=== PATIENT | female | born 1955 | race Caucasian/White ===

== ENCOUNTER → 2017-11-13 | Outpatient (CLI) | payer OTHER ==
[~2017-11-13] MED LIST: ASPIR 8181 MG PO; CLONAZEPAM 1 MG1 M1 PO; EFFIENT10 MG PO; IMDUR 30 MG TAB30 M1 PO; LEVOTHYROXINE PO; LIPITOR 20 MG T20 M1 PO; LISINOPRIL5 MG PO; LOPRESSOR25 PO; NITROGLYCERIN0.4 MG SUBLING
== END ==
LOC: M.ULTRA 13:18
DX: I82.90 Acute embolism and thrombosis of unspecified vein (principal); E78.00 Pure hypercholesterolemia, unspecified; E03.9 Hypothyroidism, unspecified; Z72.89 Other problems related to lifestyle

== ENCOUNTER → 2018-06-03 | Outpatient (CLI) | payer OTHER ==
--- NOTE | 2018-06-03 09:28 | 2DMMODE ---
[place] [address] 2 D/M-MODE ECHOCARDIOGRAM Name: HANS LAIRD Room: [facility]#: [id number] Admission: 06/03/18 Attend Phys: Rafy Barragan Discharge: Date of : 51 Date of Service: 06/03/18 0928 Report #: [id number] THIS REPORT FOR: //name// APPROVED REPORT Study performed: 06/03/2018 08:01:05 EXAM: Comprehensive 2D, Doppler, and color-flow Echocardiogram Patient Location: Out-Patient BSA: 1.62 HR: 72 bpm BP: 125/56 mmHg Other Information Study Quality: Good Indications CAD Hypertension/HDD 2D Dimensions IVSd: 13.37 (7-11mm) LVOT Diam: 20.54 (18-24mm) LVDd: 38.25 mm PWd: 9.98 (7-11mm) Ascending Ao: 26.10 (22-36mm) LVDs: 19.05 (25-40mm) Aortic Root: 24.71 mm Volumes Left Atrial Volume (Systole) LA ESV Index: 17.30 mL/m2 Aortic Valve AoV Peak Devyn.: 0.93 m/s AO Peak Gr.: 3.45 mmHg LVOT Max P.47 mmHg AO Mean Gr.: 2.05 mmHg LVOT Mean P.22 mmHg LVOT Max V: 0.79 m/s AO V2 VTI: 23.42 cm LVOT Mean V: 0.51 m/s ALFREDO (VTI): 2.82 cm2 LVOT V1 VTI: 19.97 cm Mitral Valve E/A Ratio: 0.82 MV Decel. Time: 252.78 ms MV E Max Devyn.: 0.58 m/s MV PHT: 73.31 [place] [address] 2 D/M-MODE ECHOCARDIOGRAM Name: HANS LAIRD Room: [facility]#: [id number] Admission: 06/03/18 Attend Phys: Rafy Barragan Discharge: Date of : 51 Date of Service: 06/03/18 0928 Report #: [id number] MVA (PHT): 3.00 cm2 TDI E/Lateral E': 7.25 E/Medial E': 5.80 Medial E' Devyn.: 0.10 m/s Lateral E' Devyn.: 0.08 m/s Pulmonary Valve PV Peak Devyn.: 0.68 m/s PV Peak Gr.: 1.86 mmHg Tricuspid Valve RAP Estimate: 5.00 mmHg TR Peak Gr.: 18.72 mmHg RVSP: 23.72 mmHg PA Pressure: 23.72 mmHg Left Ventricle The left ventricle is normal size. There is normal LV segmental wall motion. There is normal left ventricular wall thickness. Left ventricular systolic function is normal. The left ventricular ejection fraction is within the normal range. LVEF is 55-60%. Grade I - abnormal relaxation pattern. Right Ventricle The right ventricle is normal size. The right ventricular systolic function is normal. Atria The left atrium size is normal. The right atrium size is normal. Aortic Valve The aortic valve is normal in structure. No aortic regurgitation is present. There is no aortic valvular stenosis. Mitral Valve The mitral valve is normal in structure. Mild to moderate mitral regurgitation. No evidence of mitral valve stenosis. Tricuspid Valve The tricuspid valve is normal in structure. Trace tricuspid regurgitation. Pulmonic Valve The pulmonary valve is normal in structure. There is no pulmonic [place] [address] 2 D/M-MODE ECHOCARDIOGRAM Name: SISI,HANS JANIE Room: [facility]#: [id number] Admission: 06/03/18 Attend Phys: Rafy Barragan Discharge: Date of : 51 Date of Service: 06/03/18 0928 Report #: [id number] Great Vessels The aortic root is normal in size. IVC is normal in size and collapses >50% with inspiration. Pericardium There is no pericardial effusion. <Conclusion> LVEF is 55-60%. Mild to moderate mitral regurgitation. <ELECTRONICALLY SIGNED> By: Tonio Hernandez MD, [facility] 06/03/18927 7 7 Tonio Hernandez MD, [facility] /INF
== END ==
LOC: M.CRD 07:29
DX: I34.0 Nonrheumatic mitral (valve) insufficiency (principal)

== ENCOUNTER → 2018-06-28 | Outpatient (CLI) | payer OTHER ==
[~2018-06-28] VITALS: Ht 160 cm; Wt 61.2 kg
[~2018-06-28] MED LIST changes: +COZAAR 25 MG TA25 M2 PO
[2018-06-28 07:59] VITALS: BP 114/66
[2018-06-28 08:37] LABS: HEMATOCRIT 38.2 % (37.0-47.0); HEMOGLOBIN 12.8 gm/dL (12.0-15.0); MCH 29.6 pg (26.0-34.0); MCHC 33.5 g/dL (28.0-37.0); MCV 88.3 fL (80.0-100.0); MPV 8.8 fl. (7.2-11.1); RBC 4.32 mil/uL (4.20-5.00); RDW-CV 13.5 % (10.5-14.5); WBC 8.5 thou/uL (4.0-11.0)
[2018-06-28 08:45] LABS: ANION GAP 11 mmol/L (7-16); BUN 18 mg/dL (7-18); CALCIUM 8.8 mg/dL (8.5-10.1); CHLORIDE 104 mmol/L (98-107); CO2 27 mmol/L (21-32); CREATININE 0.8 mg/dL (0.6-1.3); GLUCOSE 109 mg/dL (70-99); POTASSIUM 3.3 mmol/L (3.5-5.1); SODIUM 142 mmol/L (136-145)
[2018-06-28 08:50] LABS: APTT 24.6 Seconds (25.0-31.3); CHOLESTEROL 190 mg/dL (<200); HDL CHOLESTEROL 47 mg/dL (>40); INR 0.9; LDL CHOLESTEROL 105 mg/dL (<100); PROTIME 9.6 Seconds (9.20-11.50); TRIGLYCERIDE 190 mg/dL (<150); VLDL 38 mg/dL (<40)
[2018-06-28 08:55] LABS: SERUM ASSESSMENT Clear
[2018-06-28 10:41] VITALS: BP 116/52
--- NOTE | 2018-06-28 10:52 | EKG ---
[place] [address] ELECTROCARDIOGRAM REPORT Name: HANS LAIRD Room: [place] [address] ADM IN M.R.#: [id number] Admission: 06/28/18 Attend Phys: Shayan Alegria MD, Discharge: Date of : 51 Report #: [id number] THIS REPORT FOR: //name// [facility] Test Date: 2018-06-28 Test Time: 08:48:58 Pat Name: HANS LAIRD Department: Room: [facility] Gender: F Towel Weaver: : 1955 Requested By: Shayan Alegria Order Number: [id number] Bryn MD: Shayan Alegria Measurements Intervals Divide Rate: 63 P: 21 MI: 179 QRS: 4 QRSD: 78 T: 67 QT: 443 QTc: 454 Interpretive Statements Sinus rhythm Baseline wander in lead(s) II,III,aVF Compared to ECG 10/30/2016 12:48:45 Myocardial infarct finding no longer present Electronically Signed On 06-28-2018 10:52:00 CDT by Shayan Alegria [email or web address] <ELECTRONICALLY SIGNED> By: Shayan Alegria MD, [facility] 06/28/18 1052 0848 0848 Shayan Alegria MD, [facility] /EPI
[2018-06-28 11:19] VITALS: BP 105/50
[2018-06-28 11:50] VITALS: BP 116/40
--- NOTE | 2018-06-28 13:00 | CARD ---
[address] [address] CARDIAC CATH REPORT Name: SISIHANS ZAMORA Room: [place] [address] ADM IN .R.#: [id number] Admission: 06/28/18 Attend Phys: Shayan Alegria MD, Discharge: Date of : 51 Report #: [id number] THIS REPORT FOR: //name// APPROVED REPORT Study performed: 06/28/2018 08:44:09 Patient Details Patient Status: Out-Patient Room #: Event Personnel Dr. Shayan Alegria Procedures Performed Left heart catheterization left ventriculography and selective coronary angiography and fractional flow reserve pertinent to the LAD Indication Chest pain Risk Factors Family History, Hypercholesterolemia Procedure Narrative The patient was brought electively to the Cardiac Catheterization Laboratory and was prepped and draped in a sterile manner. The right femoral was infiltrated with 2% Lidocaine subcutaneous anesthesia. A 6 Greek sheath was inserted into the right femoral artery. Coronary angiography was performed using coronary diagnostic catheters. The right coronary system was accessed and visualized with a Diagnostic catheter. The left coronary system was accessed and visualized with a Diagnostic catheter. The left ventricle was accessed and visualized with a Diagnostic catheter. Left ventricular/Aortic Valve gradient assessed via catheter pullback. Left ventriculogram was performed in SCHWARTZ projection. Pre-demployment femoral angiogram was performed . Closure device was deployed with a 6 Fr Mynx. There was no hematoma. Coronary Angiography The patient's coronary anatomy is right dominant. Diagnostic Cath Left Main Widely patent stent LAD 30% ostial narrowing with widely patent proximal LAD [address] [address] CARDIAC CATH REPORT Name: HANS LAIRD Room: [place] [address] ADM IN .R.#: [id number] Admission: 06/28/18 Attend Phys: Shayan Alegria MD, Discharge: Date of : 51 Report #: [id number] Circumflex 30% narrowing of the proximal portion of the first marginal branch Right Coronary 30% proximal mid and distal narrowings IVUS Anticoagulation was achieved with Heparin. Hemodynamics The aortic pressure is 120/70 mmHg with a mean of 82 mmHg. The left ventricular end diastolic pressure is 14 mmHg. There was no gradient across the aortic valve upon pullback. Conclusion #1 Coronary artery disease characterized by the following: A widely patent left main coronary artery stent B 30% ostial LAD narrowing with widely patent proximal LAD stent C prominent but nondominant circumflex with 30% narrowing of the first marginal branch D dominant right coronary artery with 30% proximal mid and distal narrowings #2 normal left ventricular systolic pressure estimated ejection fraction 60% #3 normal left-sided hemodynamic study #4 fractional flow reserve was calculated pertinent to the proximal LAD lesion with a minimum value of 0.88, suggesting lack of hemodynamic significance Recommendations Cardiac Risk Reduction Program Aggressive Medical Therapy Diagnostic Cath Approved by: Shayan Alegria MD Date/Time: 06/28/2018 12:51:23 <ELECTRONICALLY SIGNED> By: Shayan Alegria MD, [facility] 06/28/18 1259 1259 1259Shayan Alegria MD, FAC /INF
[2018-06-28 13:28] VITALS: BP 107/49
== END | disposition home or self-care (01) ==
LOC: M.CL 07:46 → M.TBA-CV 10:17 → M.CL 10:17
PROVIDERS: Internal Medicine
DX: I25.10 Atherosclerotic heart disease of native coronary artery without angina pectoris (principal); E78.00 Pure hypercholesterolemia, unspecified; E03.9 Hypothyroidism, unspecified; Z88.8 Allergy status to other drugs, medicaments and biological substances; Z79.82 Long term (current) use of aspirin; Z79.899 Other long term (current) drug therapy; Z98.890 Other specified postprocedural states

== ENCOUNTER → 2019-04-02 | Outpatient (CLI) | payer MEDICARE, OTHER ==
--- NOTE | 2019-04-02 12:48 | 2DMMODE ---
[place] [address] 2 D/M-MODE ECHOCARDIOGRAM Name: HANS LAIRD Room: [facility]#: [id number] Admission: 04/02/19 Attend Phys: Rafy Barragan Discharge: Date of : 51 Date of Service: 04/02/19 1246 Report #: [id number] THIS REPORT FOR: cc: Dahlia Barroso MD, Jayne Lora MD Holkins,Shayan Garza MD [facility] ~ APPROVED REPORT Study performed: 04/02/2019 07:56:18 EXAM: Comprehensive 2D, Doppler, and color-flow Echocardiogram Patient Location: Out-Patient BSA: 1.61 HR: 67 bpm BP: 125/60 mmHg Other Information Study Quality: Good Indications CAD Hypertension/HDD 2D Dimensions IVSd: 10.00 (7-11mm) LVOT Diam: 19.64 (18-24mm) LVDd: 40.72 mm PWd: 10.06 (7-11mm) Ascending Ao: 25.60 (22-36mm) LVDs: 25.46 (25-40mm) Aortic Root: 24.72 mm Volumes Left Atrial Volume (Systole) LA ESV Index: 17.10 mL/m2 Aortic Valve AoV Peak Devyn.: 0.93 m/s AO Peak Gr.: 3.45 mmHg LVOT Max P.22 mmHg AO Mean Gr.: 2.16 mmHg LVOT Mean P.74 mmHg LVOT Max V: 0.90 m/s AO V2 VTI: 22.29 cm LVOT Mean V: 0.61 m/s ALFREDO (VTI): 3.12 cm2 LVOT V1 VTI: 22.93 [place] [address] 2 D/M-MODE ECHOCARDIOGRAM Name: HANS LAIRD Room: [facility]#: [id number] Admission: 04/02/19 Attend Phys: Rafy Barragan Discharge: Date of : 51 Date of Service: 04/02/19 1246 Report #: [id number] E/A Ratio: 0.97 MV Decel. Time: 213.41 ms MV E Max Devyn.: 0.75 m/s MV PHT: 61.89 ms MVA (PHT): 3.55 cm2 TDI E/Lateral E': 7.50 E/Medial E': 10.71 Medial E' Devyn.: 0.07 m/s Lateral E' Devyn.: 0.10 m/s Pulmonary Valve PV Peak Devyn.: 0.68 m/s PV Peak Gr.: 1.87 mmHg Tricuspid Valve RAP Estimate: 5.00 mmHg TR Peak Gr.: 16.97 mmHg RVSP: 21.97 mmHg PA Pressure: 21.97 mmHg Left Ventricle The left ventricle is normal size. There is apical hypokinesis noted. There is normal left ventricular wall thickness. Left ventricular systolic function is normal. The left ventricular ejection fraction is within the normal range. LVEF is 55-60%. Grade I - abnormal relaxation pattern. Right Ventricle The right ventricle is normal size. The right ventricular systolic function is normal. Atria The left atrium size is normal. The right atrium size is normal. Aortic Valve The aortic valve is normal in structure. No aortic regurgitation is present. There is no aortic valvular stenosis. Mitral Valve The mitral valve is normal in structure. Mild mitral regurgitation. No evidence of mitral valve stenosis. Tricuspid Valve The tricuspid valve is normal in structure. Mild [place] [address] 2 D/M-MODE ECHOCARDIOGRAM Name: HANS LAIRD Room: [facility]#: [id number] Admission: 04/02/19 Attend Phys: Rafy Barragan Discharge: Date of : 51 Date of Service: 04/02/19 1246 Report #: [id number] Pulmonic Valve The pulmonary valve is normal in structure. There is no pulmonic valvular regurgitation. Great Vessels The aortic root is normal in size. IVC is normal in size and collapses >50% with inspiration. Pericardium There is no pericardial effusion. <Conclusion> The left ventricle is normal size. There is normal left ventricular wall thickness. Left ventricular systolic function is normal. The left ventricular ejection fraction is within the normal range. LVEF is 55-60%. Grade I - abnormal relaxation pattern. The right ventricle is normal size. The left atrium size is normal. The aortic valve is normal in structure. The mitral valve is normal in structure. Mild mitral regurgitation. The tricuspid valve is normal in structure. Mild tricuspid regurgitation. IVC is normal in size and collapses >50% with inspiration. There is no pericardial effusion. There is apical hypokinesis noted. <ELECTRONICALLY SIGNED> By: Shayan Alegria MD, FACC 04/02/19 1246 1246 1246 Shayan Alegria MD, FACC /INF
== END ==
LOC: M.CRD 07:56
DX: I08.1 Rheumatic disorders of both mitral and tricuspid valves (principal); I25.10 Atherosclerotic heart disease of native coronary artery without angina pectoris; I10 Essential (primary) hypertension

== ENCOUNTER → 2019-11-27 | Outpatient (CLI) | payer MEDICARE, OTHER ==
--- NOTE | 2019-11-27 18:07 | CARDNUC ---
[place] [address] CARDIAC NUCLEAR IMAGING REPORT Name: HANS LAIRD Room: [facility]#: [id number] Admission: 11/27/19 Attend Phys: Rafy Barragan Discharge: Date of : 51 Date of Service: 11/27/19 1806 Report #: [id number] THIS REPORT FOR: cc: Dahlia Barroso MD, Jayne Lora MD [place], Michael J. MD [facility] ~ APPROVED REPORT Imaging Protocol: Rest Tc-99m/Stress Tc-99m 1 day Study performed: 11/27/2019 09:51:22 Indication: CAD s/p ID, CAD s/p PCI, Cardiomyopathy Patient Location: Out-Patient Stress Tech: Jayne Zamorano Stress Nurse: Loyda Heaton RN NM Tech:MILAGROS Montesinos Ht: 5 ft 2 in Wt: 138 lbs BSA: 1.63 m2 BMI: 25.23 Medical History Medical History: CAD s/p ID, CAD s/p stent, HTN, Hyperlipidemia Medications: asa-81, atorvastatin,candesartan, metoprolol, nte, effient Allergies: prednisolone Cardiac Risk Factors: Age, FHX of CAD, HTN, Hyperlipidemia Previous Cardiac Procedures: PCI, Myocardial infarction Exercise History: Physically active Resting Data Rest SPECT myocardial perfusion imaging was performed in supine position 30 minutes following the intravenous injection of 10.3 mCi of Tc-99m Sestamibi. Time of rest injection: 0750 Date: 11/27/2019 The images were gated to evaluate regional wall motion and calculate left ventricular ejection fraction. Administration Route: IV Administration Site: Right AC Pharmacologic Stress Pharmacologic stress test was performed by injecting Regadenoson 0.4 mg IV push over 10-15 seconds immediately followed by the intravenous injection of 33.8 mCi of Tc-99m [place] [address] CARDIAC NUCLEAR IMAGING REPORT Name: HANS LAIRD Room: [facility]#: [id number] Admission: 11/27/19 Attend Phys: Rafy Barragan Discharge: Date of : 51 Date of Service: 11/27/19 1806 Report #: [id number] Time of stress injection: 0950 Date: 11/27/2019 Administration Route: IV Administration Site: Right AC Gated Stress SPECT was performed 40 minutes after stress injection. The images were gated to evaluate regional wall motion and calculate left ventricular ejection fraction. Prone imaging was performed. Stress Test Details Stress Test: Pharmacologic stress testing performed using 0.4 mg of regadenoson per 5 mL given IV over 10 seconds. Reason for pharmacologic stress test: physical limitation. HR Max Heart Rate (APMHR): 154 bpm Resting HR: 86 bpm Target HR (85% APMHR): 130 bpm Max HR Achieved: 104 bpm % of APMHR: 67 Recovery HR: 101 bpm BP Resting BP: 152/81 mmHg Max BP: 163/64 mmHg Recovery BP: 159/67 mmHg ECG Resting ECG: Sinus Rhythm Stress ECG: Sinus Tachycardia ST Change: None Arrhythmia: None Recovery ECG: Sinus Rhythm Recovery ST Change: None Recovery Arrhythmia: None Clinical Reason for Termination: Completed protocol The patient tolerated Lexiscan infusion without significant cardiac symptoms. Nurse Comments pt has leg pain today Stress ECG Conclusion The baseline twelve-lead EKG shows sinus rhythm without significant ST segment or T wave abnormality. EKGs obtained during and post Lexiscan infusion show sinus rhythm and sinus tachycardia with no significant ST segment or T [place] [address] CARDIAC NUCLEAR IMAGING REPORT Name: SISIHANSMABEL LIMA Room: [facility]#: [id number] Admission: 11/27/19 Attend Phys: Rafy Barragan Discharge: Date of : 51 Date of Service: 11/27/19 1806 Report #: [id number] baseline. There were no significant stress-induced arrhythmias. Study Quality Study: Good Artifact: No artifact Study Data At rest, the left ventricular ejection fraction was 76%.. Post stress, the left ventricular ejection was 84%.. TID = 0.77. Perfusion There is a moderate size moderate to severe intensity fixed defect involving the mid to distal anterior wall. The apex is spared. Significant reversibility is not appreciated. Wall Motion Global LV systolic function is well-preserved. There is perhaps a focal area of hypokinesis in the mid anterior wall. Nuclear Conclusion ECG Findings: negative for ischemia Clinical Findings: negative for ischemia Nuclear Findings: negative for ischemia Exercise Capacity: not assessed Left Ventricular Function: Preserved Perfusion study suggest infarct of the mid to distal anterior wall sparing the apex. Ischemia is not appreciated. Global LV systolic function is preserved. This is not a high risk study. <Conclusion> The baseline twelve-lead EKG shows sinus rhythm without significant ST segment or T wave abnormality. EKGs obtained during and post Lexiscan infusion show sinus rhythm and sinus tachycardia with no significant ST segment or T wave abnormality with compared to baseline. There were no significant stress-induced arrhythmias. <ELECTRONICALLY SIGNED> By: Toni Kwok MD, FACC 11/27/191805 05 05 Tnoi Kwok MD, FACC /INF
== END ==
LOC: M.NUC 07-01 16:38 → M.CRD 11-05 10:00 → M.NUC 11-05 10:00
PROVIDERS: ATTEND Internal Medicine
DX: I25.10 Atherosclerotic heart disease of native coronary artery without angina pectoris (principal); I10 Essential (primary) hypertension; E78.00 Pure hypercholesterolemia, unspecified; I25.2 Old myocardial infarction; Z95.5 Presence of coronary angioplasty implant and graft

== ENCOUNTER → 2020-12-17 | Outpatient (CLI) | payer MEDICARE, OTHER ==
--- NOTE | 2020-12-17 17:10 | CARDNUC ---
[place] [address] CARDIAC NUCLEAR IMAGING REPORT Name: HANS LAIRD Room: [facility]#: [id number] Admission: 12/17/20 Attend Phys: Rafy Barragan Discharge: Date of : 51 Date of Service: 12/17/20 1710 Report #: [id number] THIS REPORT FOR: cc: Dahlia Barroso MD, Jayne Lora MD [place], Michael J. MD [facility] ~ APPROVED REPORT Imaging Protocol: Stress Tc-99m/Rest Tc-99m 1 day Study performed: 12/17/2020 08:59:47 Indication: ROUTINE Patient Location: Out-Patient Stress Nurse: IMELDA Ht: 5 ft 1 in Wt: 140 lbs BSA: 1.62 m2 BMI: 26.44 Medical History Medical History: CAD s/p IN, CAD s/p stent, Cardiomyopathy, HTN, Hyperlipidemia Medications: ASA-81, ATORVASTATIN, CANDESARTAN, METOPROLOL, NTG, PRASUGREL Allergies: PREDNISONE, PREDNISOLONE Cardiac Risk Factors: Age, HTN, Hyperlipidemia, FHX of CAD Previous Cardiac Procedures: PCI, Myocardial infarction Exercise History: Indeterminate Meds Held (24 hrs): CARVEDILOL Resting Data Rest SPECT myocardial perfusion imaging was performed in supine position 30 minutes following the intravenous injection of 10.1 mCi of Tc-99m Sestamibi. Time of rest injection: 08:00 The images were gated to evaluate regional wall motion and calculate left ventricular ejection fraction. Administration Route: IV Administration Site: Right AC Pharmacologic Stress Pharmacologic stress test was performed by injecting Regadenoson 0.4 mg IV push over 10-15 seconds immediately followed by the intravenous injection of 28.5 mCi of Tc-99m Sestamibi. Time of stress injection: 09:05 [place] [address] CARDIAC NUCLEAR IMAGING REPORT Name: HANS LAIRD Room: [facility]#: [id number] Admission: 12/17/20 Attend Phys: Rafy Barragan Discharge: Date of : 51 Date of Service: 12/17/20 1710 Report #: [id number] Administration Route: IV Administration Site: Right AC Heart Rate at time of stress injection: 84 bpm. Gated Stress SPECT was performed 45 minutes after stress injection. The images were gated to evaluate regional wall motion and calculate left ventricular ejection fraction. Prone imaging was performed. Stress Test Details Stress Test: Pharmacologic stress was paired with low level exercise. Reason for pharmacologic stress test: physical limitation. HR Max Heart Rate (APMHR): 153 bpm Resting HR: 72 bpm Target HR (85% APMHR): 130 bpm Max HR Achieved: 112 bpm % of APMHR: 73 Recovery HR: 91 bpm BP Resting BP: 150/79 mmHg Max BP: 165/70 mmHg Recovery BP: 151/69 mmHg ECG Resting ECG: Sinus Rhythm Stress ECG: Sinus Rhythm ST Change: None Arrhythmia: None Recovery ECG: Sinus Rhythm Recovery ST Change: None Recovery Arrhythmia: None Clinical Reason for Termination: Completed protocol The patient tolerated Lexiscan protocol without significant cardiac symptoms. Stress ECG Conclusion The baseline twelve-lead EKG shows sinus rhythm without significant ST segment or T wave abnormality. EKGs obtained during a post Lexiscan infusion show sinus rhythm with no significant ST segment or T wave changes when compared to baseline. There were no stress-induced arrhythmias. [place] [address] CARDIAC NUCLEAR IMAGING REPORT Name: SISIHANS ZAMORA Room: [facility]#: [id number] Admission: 12/17/20 Attend Phys: Rafy Barragan Discharge: Date of : 51 Date of Service: 12/17/20 1710 Report #: [id number] Study: Good Artifact: No artifact Study Data At rest, the left ventricular ejection fraction was 75%.. Post stress, the left ventricular ejection was 82%.. TID = 0.78. Perfusion Perfusion images obtained at rest show a focal moderate intensity defect in the mid anterior wall. Images obtained post Lexiscan stress show a moderate size severe intensity defect involving the mid to distal anterior wall. No other significant fixed or reversible defects are identified. This appears to show focal infarct with a moderate region of debbie-infarct ischemia. Wall Motion Gated study showed normal wall motion. Nuclear Conclusion ECG Findings: negative for ischemia Clinical Findings: negative for ischemia Nuclear Findings: positive for ischemia Exercise Capacity: not assessed Left Ventricular Function: normal Risk Study: high Perfusion images suggest prior focal infarct with a moderate region of debbie-infarct ischemia involving the mid to distal anterior wall. Global LV systolic function is preserved. This is a high risk study. <Conclusion> The baseline twelve-lead EKG shows sinus rhythm without significant ST segment or T wave abnormality. EKGs obtained during a post Lexiscan infusion show sinus rhythm with no significant ST segment or T wave changes when compared to baseline. There were no stress-induced arrhythmias. <ELECTRONICALLY SIGNED> By: Toni Kwok MD, FACC 12/17/201709 09 09 Toni Kwok MD, FACC /INF
== END ==
LOC: M.NUC 06-23 12:06
PROVIDERS: ATTEND Internal Medicine
DX: I25.9 Chronic ischemic heart disease, unspecified (principal); I25.10 Atherosclerotic heart disease of native coronary artery without angina pectoris; I24.1 Dressler's syndrome; Z95.5 Presence of coronary angioplasty implant and graft

== ENCOUNTER → 2020-12-28 | Outpatient (CLI) | payer MEDICARE, OTHER ==
[~2020-12-28] VITALS: Ht 157.5 cm; Wt 63.0 kg
[2020-12-28] VITALS (11 sets, daily range): BP systolic 99–134; BP diastolic 30–55
[~2020-12-28] MED LIST changes: +ATACAND4 MG PO; +BONIVA150 MG PO; +CYMBALTA20 MG PO; +LIPITOR40 MG PO; +NEURONTIN100 MG PO; +SYNTHROID75 MC1 PO
[2020-12-28 13:30] LABS: HEMATOCRIT 39.3 % (37.0-47.0); HEMOGLOBIN 13.3 gm/dL (12.0-15.0); MCH 29.6 pg (26.0-34.0); MCHC 33.8 g/dL (28.0-37.0); MCV 87.5 fL (80.0-100.0); MPV 7.9 fl. (7.2-11.1); RBC 4.5 mil/uL (4.20-5.00); WBC 8.3 thou/uL (4.0-11.0)
[2020-12-28 13:38] LABS: ANION GAP 8 mmol/L (7-16); BUN 14 mg/dL (7-18); CALCIUM 8.6 mg/dL (8.5-10.1); CHLORIDE 103 mmol/L (98-107); CO2 29 mmol/L (21-32); CREATININE 0.8 mg/dL (0.6-1.3); GLUCOSE 103 mg/dL (70-99); POTASSIUM 3.7 mmol/L (3.5-5.1); SODIUM 140 mmol/L (136-145)
[2020-12-28 13:42] LABS: ALBUMIN 4.3 g/dL (3.4-5.0); ALKALINE PHOSPHATASE 68 U/L (46-116); CHOLESTEROL 204 mg/dL (<200); HDL CHOLESTEROL 44 mg/dL (>40); LDL CHOLESTEROL 116 mg/dL (<100); SGOT 18 U/L (15-37); SGPT 32 U/L (30-65); TC:HDL 4.6 Ratio (Not establshd); TOTAL BILIRUBIN 0.7 mg/dL (<0.1-1.0); TOTAL PROTEIN 7.8 g/dL (6.4-8.2); TRIGLYCERIDE 221 mg/dL (<150); VLDL 44 mg/dL (<40)
[2020-12-28 13:44] LABS: SERUM ASSESSMENT Clear
[2020-12-28 13:46] LABS: APTT 27.1 Seconds (25.0-31.3); PROTIME 10.1 Seconds (9.20-11.50)
--- NOTE | 2020-12-28 16:11 | CARD ---
[address] [address] CARDIAC CATH REPORT Name: HANS LAIRD Room: [facility].#: [id number] Admission: 12/28/20 Attend Phys: Shayan Alegria MD, Discharge: Date of : 51 Report #: [id number] THIS REPORT FOR: cc: Dahlia Barroso MD, Jayne Lora MD Holkins,Shayan Garza MD [facility] ~ APPROVED REPORT Study performed: 12/28/2020 13:18:33 Patient Details Patient Status: Out-Patient Room #: The patient is a 65 year-old female Event Personnel Toni Kwok Timekeeping Supervisor, Shayan Alegria Scallop Cutter, Soila Germain RN C.O.D. Clerk, Elana Carranza RN Monitor, Anisha Harrison RTR Scrub Procedures Performed Art Access - R femoral artery Left Heart Cath w/or w/o Coronaries LHC FFR FFR Hemostasis w/ Mynx Indication Positive stress test Risk Factors Family History, Hypercholesterolemia Admission/Lab Medications/Medications given during procedure Lidocaine Subcut 10 ml, Heparin IV 6500 units, Nitroglycerin IC 200 mcg Procedure Narrative The patient was brought electively to the Cardiac Catheterization Laboratory and was prepped and draped in a sterile manner. The right femoral was infiltrated with 2% Lidocaine subcutaneous anesthesia. IV conscious sedation was used throughout procedure with appropriate monitoring and was performed in the presence of a registered nurse who was an independent trained observer other than the physician performing the procedure. A [place] 6 FR sheath was inserted into the right femoral artery. Coronary angiography was performed using coronary diagnostic catheters. The right [place] [address] CARDIAC CATH REPORT Name: HANS LAIRD Room: [facility]#: [id number] Admission: 12/28/20 Attend Phys: Shayan Alegria MD, Discharge: Date of : 51 Report #: [id number] and visualized with a Diagnostic 6F JR4 catheter. The left coronary system was accessed and visualized with a Diagnostic 6F JL 4 catheter. The left ventricle was accessed and visualized with a Diagnostic 6F JR4 catheter. Left ventricular/Aortic Valve gradient assessed via catheter pullback. Pre-demployment femoral angiogram was performed . Closure device was deployed with a 6/7 Fr Mynx. The patient tolerated the procedure well and there were no complications associated with the procedure. A hematoma occurred. Intraoperative Conscious Sedation Sedation start time: 1339 Case end Time: 1409 Fentanyl 25.0 mcg Versed 2.0 mg Fluoro Time: 4.4 minutes Dose: DAP 37148 cGycm2 663 mGy Contrast Type and Amount: Visipaque 95 mL Diagnostic Cath Left Main Widely patent left main stent with 10% distal left main narrowing LAD 20% proximal LAD narrowing with a widely patent proximal LAD stent and 40% mid vessel narrowing Circumflex 40% narrowing the midportion of the nondominant circumflex after the takeoff of a prominent first marginal branch Right Coronary Dominant vessel with 30% proximalmid vessel narrowing and 30% distal narrowing Left Ventriculography Left Ventriculography was not performed. IVUS Anticoagulation was achieved with Heparin. 6,500 units Fractional Flow Cameron was performed on the left main coronary artery, left anterior descending vessel. A 6F XB 3 Guide Catheter was used to engage the left ostium. A Omniwire Interventional Guidewire was used. A IFR was used. Hemodynamics The aortic pressure is 126/53 mmHg with a mean of 78 mmHg. The left ventricular pressure is 135/1 mmHg with a mean of mmHg. The left ventricular end diastolic pressure is 13 mmHg. PCI Technique Lesion Anticoagulation was achieved with 6,500 units[place] [address] CARDIAC CATH REPORT Name: HANS LAIRD Room: [facility]#: [id number] Admission: 12/28/20 Attend Phys: Shayan Alegria MD, Discharge: Date of : 51 Report #: [id number] prior to intervention was left main coronary artery, left anterior descending% with MEAGAN 6F XB 3 flow. A left Guide Catheter was used to engage the Omniwire ostium. A IFR Interventional Guidewire was used to cross the lesion. COMMENTS IFR was calculated in the LAD with a minimum value of 0.920.93, suggesting lack of hemodynamic significance of the confluent distal left main proximal and mid LAD lesions. Conclusion 1. Modest coronary artery disease characterized by the following: A widely patent left main coronary stent with 10% distal left main coronary narrowing B 20% very proximal LAD narrowing with a widely patent proximal LAD stent and 40% mid vessel narrowing C 40% narrowing the midportion of the nondominant circumflex after the takeoff of the prominent first marginal branch D dominant right coronary artery with 30% proximalmid vessel narrowing and 30% distal narrowing 3. Normal left-sided hemodynamic study 4. IFR was calculated on the LAD with a minimum value of 0.920.93, suggesting lack of hemodynamic significance of the sequential distal left main and LAD lesions Recommendations Cardiac Risk Reduction Program Aggressive Medical Therapy Diagnostic Cath Approved by: Toni Kwok MD Date/Time: 12/28/2020 16:06:15 <ELECTRONICALLY SIGNED> By: Shayan Alegria MD, [facility] 12/28/201610 10 10Joyee Alegria MD, FAC /INF
--- NOTE | 2020-12-28 16:26 | H ---
[place] [address] HISTORY AND PHYSICAL Name: HANS LAIRD Room: [facility].#: [id number] Admission: 12/28/20 Attend Phys: Shayan Alegria MD, Discharge: Date of : 51 Report #: [id number] THIS REPORT FOR: cc: Dahlia Barroso MD, Jayne Lora MD Holkins,Shayan Garza MD [facility] ~ DATE OF SERVICE: 12/28/2020 ADMITTING HISTORY AND PHYSICAL HISTORY OF PRESENT ILLNESS: The patient is a very pleasant 65-year-old female with a history of remote anteroapical non-ST segment elevation myocardial infarction, interrupted by PCI to the distal left main and proximal LAD. She underwent cardiac catheterization 2 years ago, which revealed widely patent left main LAD stent. Recently, she has noted some discomfort in her left arm associated with exertion, which is compatible with ischemia. In this setting, stress Cardiolite was performed and it revealed a fixed mid anterior defect with inducible mid to distal anterior ischemia. This is a severe defect on radionuclide scans. The patient has an underlying hypertension and hyperlipidemia. She is compliant with a complex medical regimen including aspirin 81 mg daily, atorvastatin 40 mg daily, candesartan 4 mg daily, clonazepam 1 mg as needed, Cymbalta 40 mg daily, gabapentin 100 mg b.i.d., Boniva 150 mg every 30 days, L-thyroxine 75 mcg daily, metoprolol 12.5 mg b.i.d., p.r.n. sublingual nitroglycerin, and prasugrel 10 mg daily. PAST MEDICAL HISTORY: Remarkable for hypertension, hyperlipidemia and fibromyalgia. SOCIAL HISTORY: She is a nonsmoker. REVIEW OF SYSTEMS: Remarkable for the following: CARDIAC: She notes arm pain compatible with angina. Remainder of the 12-point review of systems unremarkable. PHYSICAL EXAMINATION: GENERAL: Reveals a middle-aged female in no acute distress. VITAL SIGNS: Blood pressure is 125/65, pulse rate is 72, respirations are 18 per minute. NECK: Jugular venous pressure is normal. Carotids are 1-2+. [place]ST: [place] [address] HISTORY AND PHYSICAL Name: HANS LAIRD Room: [facility]#: [id number] Admission: 12/28/20 Attend Phys: Shayan Alegria MD, Discharge: Date of : 51 Report #: [id number] CARDIAC: Reveals normal first and second heart sounds without rubs, murmurs or gallops. ABDOMEN: Soft. EXTREMITIES: Without edema with intact femoral, pedal and radial pulses. LABORATORY DATA: Recent nuclear stress test revealed a small fixed mid anterior defect with inducible mid to distal anterior and apical ischemia. IMPRESSION: 1. Coronary artery disease, status post remote non-ST segment elevation anteroapical infarction. 2. Recent left arm pain compatible with angina. 3. Abnormal nuclear stress test with inducible mid to distal anterior and apical ischemia. 4. Hyperlipidemia. 5. Hypertension. 6. Fibromyalgia. 7. Hypothyroidism. RECOMMENDATIONS: Given the aforementioned clinical scenario with known coronary artery disease, status post remote anteroapical infarction, arm pain compatible with angina and abnormal nuclear stress test, I would recommend proceeding with cardiac catheterization to define the magnitude of coronary artery disease and prospects for subsequent therapeutic modification. We will plan to proceed on 12/28/2020. <ELECTRONICALLY SIGNED> By: Shayan Alegria MD, FACC 12/28/20 1626 [id number] [id number] Alegria MD, FACC /nt
== END | disposition home or self-care (01) ==
LOC: M.CL 07:57
PROVIDERS: ATTEND Internal Medicine
DX: R94.39 Abnormal result of other cardiovascular function study (principal); I25.10 Atherosclerotic heart disease of native coronary artery without angina pectoris; E78.00 Pure hypercholesterolemia, unspecified; I10 Essential (primary) hypertension; E78.5 Hyperlipidemia, unspecified; M79.7 Fibromyalgia; E03.9 Hypothyroidism, unspecified; Z98.890 Other specified postprocedural states; Z79.899 Other long term (current) drug therapy; Z79.82 Long term (current) use of aspirin